=== PATIENT | male | born 1950 | race Caucasian/White ===

== ENCOUNTER 2016-06-18 10:41 | Emergency (ER) | payer OTHER ==
[~2016-06-18] VITALS: Ht 182.8 cm; Wt 113.4 kg
[~2016-06-18 10:41] MED LIST: AMOXICILLIN500 M2 PO; ASPIRIN ADULT L81 M2 PO; COMPLETE OMEGA1 EACH PO; COQ-1030 MG PO; TOBREX OPHTH S2.5 ML OPH
[2016-06-18 11:00] VITALS: BP 131/98
[2016-06-18] MEDS ORDERED: IBU800 MG PO (13:07)
== END 2016-06-18 13:23 | disposition home or self-care (01) ==
LOC: ED 10:41
DX: S40.011A Contusion of right shoulder, initial encounter (principal); S00.01XA Abrasion of scalp, initial encounter; S10.93XA Contusion of unspecified part of neck, initial encounter; Z79.82 Long term (current) use of aspirin; Z79.899 Other long term (current) drug therapy; W18.09XA Striking against other object with subsequent fall, initial encounter; Y93.9 Activity, unspecified; Y92.9 Unspecified place or not applicable; Y99.9 Unspecified external cause status

== ENCOUNTER → 2016-12-22 | Outpatient (CLI) | payer OTHER ==
[~2016-12-22] MED LIST changes: +IBU800 MG PO
== END | disposition home or self-care (01) ==
LOC: EDSTATUS 13:00
DX: S40.012A Contusion of left shoulder, initial encounter (principal); M19.012 Primary osteoarthritis, left shoulder; Z91.81 History of falling; X58.XXXA Exposure to other specified factors, initial encounter; Y93.89 Activity, other specified; Y92.89 Other specified places as the place of occurrence of the external cause; Y99.8 Other external cause status

== ENCOUNTER → 2017-01-27 | Outpatient (CLI) | payer OTHER ==
[~2017-01-27] MED LIST changes: +CENTRUM SILVER1 EACH PO; +CHOLEST OFF PL450 MG PO; +GARLIC1000 M1 PO; +VITAMIN C500 M4 PO
[2017-01-27 11:23] LABS: BASO # 0.1 10*3/uL (0.0-0.1); BASO % 1.1 % (0.0-1.0); EOS # 0.3 10*3/uL (0.0-0.4); EOS % 4.4 % (1.0-4.0); HEMOGLOBIN 15.1 g/dl (14.0-18.0); LYMPH # 2.5 10*3/uL (1.3-4.4); LYMPH % 44.4 % (27.0-41.0); MEAN CELL VOLUME 90.7 fl (80.0-94.0); MEAN CORPUSCULAR HGB 30.4 pg (27.0-31.0); MEAN CORPUSCULAR HGB CONC 33.6 g/dl (33.0-37.0); MEAN PLATELET VOLUME 9.5 fl (9.6-12.3); MONO # 0.5 10*3/uL (0.1-1.0); MONO % 9.5 % (3.0-9.0); NEUT # 2.3 10*3/uL (2.3-7.9); NEUT % 40.4 % (47.0-73.0); PLATELET COUNT AUTOMATED 258 10*3/uL (130-400); RED BLOOD COUNT 4.96 10*6/uL (4.50-5.90); RED CELL DISTRI WIDTH 13.5 % (0-14.5); WHITE BLOOD COUNT 5.7 10*3/uL (4.8-10.8)
[2017-01-27 11:32] LABS: BILIRUBIN NEGATIVE (NEGATIVE); BLOOD NEGATIVE (NEGATIVE); CLARITY CLEAR (CLEAR); COLOR YELLOW (YELLOW); GLUCOSE NEGATIVE (NEGATIVE); KETONE NEGATIVE (NEGATIVE); LEUKO ESTERASE NEGATIVE (NEGATIVE); NITRITE NEGATIVE (NEGATIVE); UROBILINOGEN 0.2 E.U./dl (0.2-1.0)
[2017-01-27 11:41] LABS: ALBUMIN 4.1 gm/dl (3.1-4.5); ALKALINE PHOSPHATASE 61 U/L (45-117); BUN 10 mg/dl (7-24); CHLORIDE 102 mmol/L (98-107); CREATININE 0.95 mg/dL (0.70-1.30); POTASSIUM 4.3 mmol/L (3.5-5.1); SGOT/AST 41 IU/L (3-35); SGPT/ALT 60 U/L (12-78); SODIUM 137 mmol/L (136-145); TOTAL PROTEIN 7.7 gm/dL (6.4-8.2)
[2017-01-27 12:00] LABS: EPITHELIAL CELLS 0-2
== END | disposition home or self-care (01) ==
LOC: LAB 09:23
PROVIDERS: Orthopaedic Surgery
DX: Z01.818 Encounter for other preprocedural examination (principal); Z87.891 Personal history of nicotine dependence; M47.894 Other spondylosis, thoracic region; M75.102 Unspecified rotator cuff tear or rupture of left shoulder, not specified as traumatic

== ENCOUNTER → 2017-01-31 | Outpatient (CLI) | payer OTHER | END | disposition home or self-care (01) | LOC: CARD 01:15 | DX: I35.8 Other nonrheumatic aortic valve disorders (principal) ==

== ENCOUNTER → 2017-02-03 | Day surgery (SDC) | payer OTHER ==
[2017-01-27 10:05] VITALS: BP 158/110
[~2017-02-03] VITALS: Ht 182.8 cm; Wt 119.3 kg
[2017-02-03] VITALS (8 sets, daily range): BP systolic 128–166; BP diastolic 82–102
[~2017-02-03] MED LIST changes: +Percocet 325 MG1 TAB PO; +ZOFRAN4 MG PO
--- NOTE | ~2017-02-03 | O ---
[place], [place] OPERATIVE NOTE NAME: [facility]OS [id number] UNIT #: [id number] ROOM: DOCTOR: VIOLA WOODARD DO BIRTHDATE: [birth year] DOS: 02/03/2017 PREOPERATIVE DIAGNOSES: Left rotator cuff tear with impingement and acromioclavicular joint arthritis. POSTOPERATIVE DIAGNOSES: Left rotator cuff tear with impingement and acromioclavicular joint arthritis. OPERATIVE PROCEDURE: Open rotator cuff repair, subacromial decompression and Guerda procedure. SURGEON: Viola Woodard DO. CHAIR PAD MAKER: Jose De Jesus. ANESTHESIA: Silvana, general with endotracheal intubation. INDICATIONS: The patient is a 66-year-old male who injured his left shoulder as a work related injury on 06/18/2016 when he fell over a rail and tried to grab a cart with his left arm. The patient failed conservative treatment of injections, physical therapy, anti-inflammatories and rest. MRI arthrogram indicated a complete tear of the supraspinatus tendon with degenerative changes at the acromioclavicular joint. The risks and benefits of the procedure were explained to the patient preoperatively. Preoperative labs and x-rays were obtained. PROCEDURE: The left arm was marked in the holding room. The patient was brought to the operative suite. General anesthetic with endotracheal intubation was performed. The patient was placed supine on the shoulder table in a modified beach chair position. A timeout was performed. The patient received Ancef 2 grams IV piggyback. The incision was planned between the anterior acromion and coracoid process. The area was injected with Marcaine 0.25% with epinephrine. The incision was made sharply with a scalpel. Subcutaneous tissue was spread down to the level of the deltoid fascia. The deltoid fascia was divided along its fibers as well as the deltoid muscle. The self-retaining retractors were placed. The coracoacromial ligament was released. The bursa was debrided. The longitudinal tear which was complete at the supraspinatus was identified. This was repaired using a modified SpeedBridge. The SwiveLock double loaded bone anchor was placed at the junction of the articular surface and the footprint. This was done in the usual manner with the punch followed by manual placement of the anchor. The FiberTape was divided and placed separately through the tear at the supraspinatus using the scorpion suture passer. The repair was completed using the Arthrex SwiveLock C with the suture passed through the islet and then placed at the level of the footprint with a usual manner of the punch followed by manual placement of the anchor. The was evaluated and found to be adequate and stable. Attention was turned to the acromioclavicular joint. [place], [place] OPERATIVE NOTE NAME: JAYMIE RAMOS UNIT #: [id number] ROOM: DOCTOR: VIOLA WOODARD DO BIRTHDATE: [birth year] retractors were used to identify the distal clavicle at the acromioclavicular joint. The capsule was removed using an electric Bovie. An oscillating saw was used to remove the distal 1 cm of the clavicle. The undersurface was smoothed using a handheld rasp. Attention was then turned to the anterior acromion, which was noted to have a large spur. This was removed using an osteotome followed by a handheld rasp to smooth any rough edges. The area was palpated digitally and found to have an adequate subacromial space without any evidence of bony spurs or impingement remaining. The area was copiously irrigated with normal saline. The acromioclavicular joint capsule was repaired with 0 Vicryl as was the deltoid fascia. The subcutaneous layer was closed with 2-0 Vicryl. The skin was closed with joe. The area was injected with Marcaine 0.25% with epinephrine. The dressing was placed using Xeroform followed by 4 x 4s, and ABD and Tegaderm dressing with an additional ABD placed in the axilla. The patient was placed in a sling with an abduction pillow. The anesthetic was reversed. The patient was extubated and taken to recovery room in satisfactory condition. Sponge and needle count correct. ESTIMATED BLOOD LOSS: 50 mL. SPECIMENS: Anterior acromion and distal clavicle. DRAINS: None. PACKING: None. COMPLICATIONS: None. FINDINGS: Complete tear of the supraspinatus tendon, acromioclavicular joint arthritis, anterior acromial spurs. [place], [place] OPERATIVE NOTE NAME: JAYMIE RAMOST #: [id number] UNIT #: [id number] ROOM: DOCTOR: VOILA WOODARD DO BIRTHDATE: [birth year] VIOLA WOODARD DO CM:OPRECORD:OPERATIVE NOTE 1303 1345 VIOLA WOODARD DO 02/03/17 1345 interface
== END | disposition home or self-care (01) ==
LOC: SDC 01-27 09:30
DX: M75.102 Unspecified rotator cuff tear or rupture of left shoulder, not specified as traumatic (principal); M25.812 Other specified joint disorders, left shoulder; M19.019 Primary osteoarthritis, unspecified shoulder; Z87.891 Personal history of nicotine dependence; Z80.9 Family history of malignant neoplasm, unspecified

== ENCOUNTER → 2017-03-01 | Outpatient (CLI) | payer OTHER | END | disposition home or self-care (01) | LOC: CT 08:54 | DX: I50.32 Chronic diastolic (congestive) heart failure (principal); R60.0 Localized edema; R06.02 Shortness of breath; I87.2 Venous insufficiency (chronic) (peripheral); L65.9 Nonscarring hair loss, unspecified; K44.9 Diaphragmatic hernia without obstruction or gangrene; K76.0 Fatty (change of) liver, not elsewhere classified; I25.10 Atherosclerotic heart disease of native coronary artery without angina pectoris; Z87.891 Personal history of nicotine dependence ==

== ENCOUNTER → 2017-04-27 | Outpatient (CLI) | payer OTHER | END | disposition home or self-care (01) | LOC: ORTHO 02:41 | DX: M19.012 Primary osteoarthritis, left shoulder (principal) ==

== ENCOUNTER → 2017-10-26 | Outpatient (CLI) | payer OTHER | END | disposition home or self-care (01) | LOC: MRI 13:45 | DX: S40.012S Contusion of left shoulder, sequela (principal); Z98.890 Other specified postprocedural states ==

== ENCOUNTER 2018-06-06 09:22 | Inpatient (IN) | payer OTHER, MEDICARE ==
[2018-06-06] VITALS (10 sets, daily range): BP systolic 122–184; BP diastolic 75–115
[~2018-06-06] VITALS: Ht 182.8 cm; Wt 123.9 kg
--- NOTE | ~2018-06-06 | EKG ---
[place], [place] ELECTROCARDIOGRAM REPORT NAME: JAYMIE RAMOS UNIT #: [id number] ROOM: 531 DOCTOR: VLADIMIR DRAFT REPORT BIRTHDATE: [birth year] [facility] Test Date: 2018-06-07 Test Time: 07:56:10 Pat Name: JAYMIE RAMOS Department: Room: 531 Gender: M Maintenance Journeyman: Geetha Fabian : 1950 Requested By: MERCEDES BOATENG Order Number: [id number] Reading MD: Clement Tuttle MD Measurements Intervals [place] Rate: 64 P: -8 FL: 156 QRS: -27 QRSD: 94 T: 136 QT: 407 QTc: 420 Interpretive Statements Sinus rhythm Borderline left axis deviation Abnormal T, consider ischemia, lateral leads No previous ECG available for comparison Electronically Signed On 06-07-2018 9:39:31 PST by Clement Tuttle MD CM:EKGRPT:ELECTROCARDIOGRAM REPORT [id number] MERCEDES NEGRON DRAFT REPORT MERCEDES BOATENG DO
[2018-06-06 10:17] LABS: BASO # 0.1 10*3/uL (0.0-0.1); BASO % 0.9 % (0.0-1.0); EOS # 0.4 10*3/uL (0.0-0.4); EOS % 6.5 % (1.0-4.0); HEMATOCRIT 47.2 % (42.0-52.0); HEMOGLOBIN 16.1 g/dl (14.0-18.0); LYMPH # 2.6 10*3/uL (1.3-4.4); LYMPH % 39.9 % (27.0-41.0); MEAN CELL VOLUME 91.1 fl (80.0-94.0); MEAN CORPUSCULAR HGB 31.1 pg (27.0-31.0); MEAN CORPUSCULAR HGB CONC 34.1 g/dl (33.0-37.0); MEAN PLATELET VOLUME 9.4 fl (9.6-12.3); MONO # 0.7 10*3/uL (0.1-1.0); NEUT # 2.8 10*3/uL (2.3-7.9); NEUT % 42.5 % (47.0-73.0); PLATELET COUNT AUTOMATED 265 10*3/uL (130-400); RED BLOOD COUNT 5.18 10*6/uL (4.50-5.90); RED CELL DISTRI WIDTH 13.8 % (0-14.5); WHITE BLOOD COUNT 6.5 10*3/uL (4.8-10.8)
[2018-06-06 10:27] LABS: ACT PARTIAL THROMBO TIME 23.1 SECONDS (20.8-31.5)
[2018-06-06 10:34] LABS: ALBUMIN 4.1 gm/dl (3.1-4.5); ALKALINE PHOSPHATASE 56 U/L (45-117); BUN 10 mg/dl (7-24); CHLORIDE 105 mmol/L (98-107); CREATININE 1.05 mg/dL (0.70-1.30); LIPASE 121 U/L (73-393); POTASSIUM 4.3 mmol/L (3.5-5.1); SGOT/AST 40 IU/L (3-35); SGPT/ALT 65 U/L (12-78); SODIUM 140 mmol/L (136-145)
[2018-06-06 10:35] LABS: TOTAL PROTEIN 7.7 gm/dL (6.4-8.2); TROPONIN I < 0.015 ng/ml (<0.045)
[2018-06-06] MEDS ORDERED: IBU800 MG PO (13:49)
--- NOTE | 2018-06-06 14:02 | NUR ---
RADHA MCDOWELL CALLED WITH BP 154/95 AFTER PATIENT ADMITTED TO FLOOR. WAITING FOR NEW ORDERS. RADHA ALSO AWARE THAT HOME MEDICATION LIST IS UP TO DATE.
--- NOTE | 2018-06-06 14:06 | NUR ---
A 67, admitted to , under the services of ANNETTE Meza DO with a diagnosis of HYPERTENSIVE EMERGENCY. Chief complaint is HIGH BLOOD PRESSURE. Patient arrived via stretcher from ER. Monitor applied. Initial assessment completed. Vital signs taken and recorded. ANNETTE MEZA DO notified of admission to the unit. Orders received. See assessment for past medical history, medications and allergies. Patient and/or family oriented to unit. [facility] visitation policy reviewed. Clothing/patient valuable form completed. NAHED LUDWIG
--- NOTE | 2018-06-06 15:27 | NUR ---
BP 166/86 30 MIN AFTER ADMINISTRATION OF 10MG APRESOLINE. WILL COMTINUE TO MONITOR.
--- NOTE | 2018-06-06 15:50 | NUR ---
PATIENT REQUESTING PAIN MEDICATION FOR HEADACHE. NORCO ADMINISTERED PRESCRIBED. WILL MONITOR FOR EFFECTIVENESS.
--- NOTE | 2018-06-06 15:54 | NUR ---
BP 157/87 AT THIS TIME. WILL CONTINUE TO MONITOR.
--- NOTE | 2018-06-06 16:50 | NUR ---
PATIENT STATES THAT HEADACHE IS GOING AWAY, BUT STILL LINGERING. WILL CONTINUE TO MONITOR.
--- NOTE | 2018-06-06 19:00 | NUR ---
PT AWAKE IN BED DURING BEDSIDE SHIFT REPORT. NO C/O VOICED AT THE PRESENT TIME. CALL LIGHT IN REACH.
[2018-06-07] VITALS: BP 109/65
--- NOTE | 2018-06-07 01:27 | NUR ---
Patient sleeping. Respirations relaxed and easy. Siderails up . Wheelkavons on. RORO PRESTON
[2018-06-07 06:38] LABS: BASO # 0.1 10*3/uL (0.0-0.1); BASO % 1.2 % (0.0-1.0); EOS # 0.4 10*3/uL (0.0-0.4); EOS % 6.3 % (1.0-4.0); HEMATOCRIT 49.9 % (42.0-52.0); HEMOGLOBIN 16.6 g/dl (14.0-18.0); LYMPH # 2.5 10*3/uL (1.3-4.4); LYMPH % 41.6 % (27.0-41.0); MEAN CELL VOLUME 92.2 fl (80.0-94.0); MEAN CORPUSCULAR HGB 30.7 pg (27.0-31.0); MEAN CORPUSCULAR HGB CONC 33.3 g/dl (33.0-37.0); MEAN PLATELET VOLUME 9.5 fl (9.6-12.3); MONO # 0.5 10*3/uL (0.1-1.0); MONO % 8.5 % (3.0-9.0); NEUT # 2.5 10*3/uL (2.3-7.9); NEUT % 42.2 % (47.0-73.0); PLATELET COUNT AUTOMATED 235 10*3/uL (130-400); RED BLOOD COUNT 5.41 10*6/uL (4.50-5.90); RED CELL DISTRI WIDTH 14.1 % (0-14.5); WHITE BLOOD COUNT 5.9 10*3/uL (4.8-10.8)
--- NOTE | 2018-06-07 06:50 | NUR ---
24 HR chart check completed.
[2018-06-07 07:10] LABS: ALBUMIN 3.3 gm/dl (3.1-4.5); ALKALINE PHOSPHATASE 48 U/L (45-117); BUN 14 mg/dl (7-24); CHLORIDE 103 mmol/L (98-107); CHOLESTEROL 224 mg/dL (<200); CREATININE 1.15 mg/dL (0.70-1.30); PHOSPHOROUS 3.9 mg/dL (2.5-4.9); POTASSIUM 4.6 mmol/L (3.5-5.1); SGOT/AST 36 IU/L (3-35); SGPT/ALT 60 U/L (12-78); SODIUM 138 mmol/L (136-145); TOTAL PROTEIN 7.1 gm/dL (6.4-8.2); TRIGLYCERIDES 266 mg/dl (<150); VLDL CHOLESTEROL 53 mg/dL (6-40)
[2018-06-07 07:16] LABS: FREE T4 0.61 ng/dl (0.76-1.46); HDL CHOLESTEROL 39 mg/dl (40-60); LDL CHOLESTEROL 132 mg/dL (9-159)
[2018-06-07 07:53] LABS: VITAMIN D, 25-HYDROXY 15.8 ng/mL (30-100)
[2018-06-07 08:00] VITALS: BP 110/66
--- NOTE | 2018-06-07 08:20 | NUR ---
24 HR CHART CHECK COMPLETE.
--- NOTE | 2018-06-07 11:36 | NUR ---
Nutritional Support Services Note: Discussing with pt diet for diabetes. Basic diabetic meal guidelines given to pt. He had a lot of questions, all questions were answered. He states he will do the best he can and comply with diet. Encouraged follow up if needed. Carol Ann Britton Rdn Ld
[2018-06-07] MEDS ORDERED: Vitamin D PO (13:12)
[2018-06-07] MEDS ORDERED: LISINOPRIL10 M1 PO (13:12)
[2018-06-07] MEDS ORDERED: LIPITOR10 MG PO (13:12)
[2018-06-07] MEDS ORDERED: GLUCOPHAGE500 MG PO (13:12)
[2018-06-07] MEDS ORDERED: AUGMENTIN 875875 MG PO (13:12)
--- NOTE | 2018-06-07 14:20 | NUR ---
Children'S Attendant in to talk to patient. Patient states lives at HOME with FRIEND. There are FEW steps in the home. Physician: NONE Pharmacy: [facility] Home health services: NONE Patient's level of ADLs: INDEPENDENT Patient has working utilities: YES DME: NONE Follow-up physician's appointment after d/c: WILL BE MADE BY HOSPITALIST NURSE DIRECTOR ON DISCHARGE Does patient want to access PORTAL?: NO Discharge plan PT LIVES AT HOME AND IS INDEPENDENT IN CARE. STATES HE WILL RETURN HOME WITH NO NEEDS ON DISCHARGE. WILL CONTINUE TO FOLLOW.. NAVDEEP LUDWIG
== END 2018-06-07 14:20 | disposition home or self-care (01) | DRG 305 ==
LOC: ED 09:22 → 5E 11:31 → EDHOLD 11:31 → 5E 11:32
PROVIDERS: Emergency Medicine; Registered Nurse; ADMIT Internal Medicine
DX: I16.1 Hypertensive emergency (principal); E83.41 Hypermagnesemia; E66.9 Obesity, unspecified; I10 Essential (primary) hypertension; E78.00 Pure hypercholesterolemia, unspecified; Z85.028 Personal history of other malignant neoplasm of stomach; Z79.82 Long term (current) use of aspirin; J32.3 Chronic sphenoidal sinusitis; R74.0 Nonspecific elevation of levels of transaminase and lactic acid dehydrogenase [LDH]; Z68.37 Body mass index [BMI] 37.0-37.9, adult

== ENCOUNTER → 2021-07-22 | Outpatient (CLI) | payer OTHER ==
[~2021-07-22] MED LIST changes: +AUGMENTIN 875875 MG PO; +GLUCOPHAGE500 MG PO; +LIPITOR10 MG PO; +LISINOPRIL10 M1 PO; +Vitamin D PO
== END | disposition home or self-care (01) ==
LOC: US 13:50
PROVIDERS: ATTEND Nurse Practitioner Family
DX: R59.0 Localized enlarged lymph nodes (principal)

== ENCOUNTER → 2021-09-28 | Outpatient (CLI) | payer OTHER ==
[2021-09-28 14:49] LABS: CREATININE 1.03 mg/dL (0.70-1.30)
== END | disposition home or self-care (01) ==
LOC: CT 13:56
PROVIDERS: Radiology Diagnostic Radiology; ATTEND Otolaryngology
DX: J32.3 Chronic sphenoidal sinusitis (principal)

== ENCOUNTER → 2021-10-23 | Outpatient (CLI) | payer OTHER | LOC: RAD 16:54 | PROVIDERS: ATTEND Nurse Practitioner Family | DX: R05.9 Cough, unspecified (principal); R06.2 Wheezing ==

== ENCOUNTER → 2023-05-27 | Outpatient (CLI) | payer OTHER | END | disposition home or self-care (01) | LOC: US 03:19 | PROVIDERS: ATTEND Nurse Practitioner Family | DX: K76.0 Fatty (change of) liver, not elsewhere classified (principal); R94.5 Abnormal results of liver function studies ==

== ENCOUNTER 2025-04-21 16:59 | Emergency (ER) | payer OTHER ==
[2025-04-21 17:28] LABS: BASO # 0.1 10*3/uL (0.0-0.1); BASO % 0.6 % (0.0-1.0); EOS # 0.2 10*3/uL (0.0-0.4); EOS % 2.2 % (1.0-4.0); MEAN CELL VOLUME 92.7 fl (80.0-94.0); MEAN CORPUSCULAR HGB 29.8 pg (27.0-31.0); MEAN PLATELET VOLUME 9.0 fl (9.6-12.3); MONO # 0.8 10*3/uL (0.1-1.0); MONO % 10.3 % (3.0-9.0); NEUT # 4.5 10*3/uL (2.3-7.9); NEUT % 58.0 % (47.0-73.0); NUCLEATED RED BLOOD CELL 0.0 % (0.0-0.0); NUCLEATED RED BLOOD CELL 0.0 10*3/uL (0.0-0.0); PLATELET COUNT AUTOMATED 257 10*3/uL (130-400); RED CELL DISTRI WIDTH 14.2 % (0-14.5)
[2025-04-21 17:46] LABS: ACT PARTIAL THROMBO TIME 24.2 SECONDS (20.0-32.1)
[2025-04-21 17:49] VITALS: BP 100/63
[2025-04-21 17:49] LABS: BUN 12 mg/dl (9-23); SGPT/ALT 76 U/L (5-49)
[2025-04-21] MEDS ORDERED: IOHEXOL 350 MG/ML 100 ML VIAL IV ONE (17:50)
[2025-04-21] MEDS ORDERED: SODIUM CHLORIDE 0.9% 100 ML BAG IV ONE (17:55)
[2025-04-21] MEDS ORDERED: SODIUM CHLORIDE 0.9% 100 ML IV ONE (18:19)
== END 2025-04-21 20:37 | disposition home or self-care (01) ==
LOC: ED 16:59
PROVIDERS: Nurse Practitioner Family
DX: R55 Syncope and collapse (principal); R07.89 Other chest pain; I10 Essential (primary) hypertension; E11.9 Type 2 diabetes mellitus without complications; E78.00 Pure hypercholesterolemia, unspecified